=== PATIENT | female | born 1960 | race Caucasian/White ===

== ENCOUNTER 2018-05-26 07:35 | Outpatient (REF) | payer OTHER, SELFPAY ==
[2018-05-26 21:37] LABS: TSH 0.31 uIU/mL (0.358-3.74)
[2018-05-26 22:11] LABS: Abs Immature Grans 0.05 k/cumm (0.0-0.09); Absolute Basophil Count 0.05 k/cumm (0.0-0.2); Absolute Eosinophil Count 0.13 k/cumm (0.0-0.7); Absolute Lymphocyte Count 2.57 k/cumm (1.2-3.4); Absolute Monocyte Count 0.76 k/cumm (0.11-0.7); Absolute Neutrophil Count 7.03 k/cumm (1.2-6.7); Basophils % 0.5; Eosinophils % 1.2; HCT 45.6 % (36.0-46.0); HGB 14.8 g/dL (12.0-15.5); Immature Grans % 0.5; Lymphocytes % 24.3; Mean Corp. HGB Concentration 32.5 g/dL (32.0-36.0); Mean Corpuscular Hemoglobin 28.8 pg (27.0-33.0); Mean Corpuscular Volume 88.9 fL (80-95); Monocytes % 7.2; Neutrophils % 66.3; Platelet Count 377 x1000/uL (130-400); RBC 5.13 m/cumm (4.00-5.20); RBC Distribution Width 14.6 % (11.7-14.6); White Blood Cell Count 10.59 k/cumm (4.4-10.8)
[2018-05-26 22:34] LABS: Hemoglobin A1C 6.6 % (4.5-6.2)
== END 2018-05-26 07:55 ==
LOC: NCHCN 07:35
PROVIDERS: PCP Family Medicine; Visit Provider Registered Nurse
DX: E03.9 Hypothyroidism, unspecified (principal); D72.829 Elevated white blood cell count, unspecified; C54.1 Malignant neoplasm of endometrium; E11.9 Type 2 diabetes mellitus without complications
CPT/HCPCS: 83036; 84443; 85025

== ENCOUNTER 2018-09-07 18:47 | Outpatient (REF) | payer OTHER, SELFPAY ==
[2018-09-07 22:15] LABS: TSH (W/Ref FT4) 2.91 uIU/mL (0.358-3.74)
== END 2018-09-07 19:07 ==
LOC: NCHCN 18:47
PROVIDERS: PCP Family Medicine; Visit Provider Family Medicine
DX: E03.9 Hypothyroidism, unspecified (principal)
CPT/HCPCS: 84443

== ENCOUNTER 2019-03-28 16:00 | Outpatient (REF) | payer OTHER, SELFPAY ==
[2019-03-28 22:35] LABS: TSH 2.88 uIU/mL (0.36-3.74)
== END 2019-03-28 16:20 ==
LOC: NCHCN 16:00
PROVIDERS: PCP Family Medicine; Visit Provider Family Medicine
DX: R07.89 Other chest pain (principal); E03.9 Hypothyroidism, unspecified
CPT/HCPCS: 84443

== ENCOUNTER 2020-06-28 16:46 | Outpatient (REF) | payer OTHER, SELFPAY ==
[2020-06-28 21:04] LABS: COMMENT (LAB VIEW ONLY) 96.02 mg/dL; Microalb ug/mg Crea 5.1 ug/mg Cr
== END 2020-06-29 16:47 | disposition home or self-care (01) ==
LOC: NCHCN 16:46
PROVIDERS: PCP Family Medicine; Visit Provider Family Medicine
DX: E11.9 Type 2 diabetes mellitus without complications (principal)
CPT/HCPCS: 82043; 82570

== ENCOUNTER 2020-09-25 08:50 | Outpatient (REF) | payer SELFPAY ==
[2020-09-25 22:26] LABS: Calculated LDL 92 mg/dL (<100); Cholesterol 160 mg/dL (<200); HDL Cholesterol 41 mg/dL (40-60); Triglyceride 139 mg/dL (<150)
== END 2020-09-25 08:51 | disposition home or self-care (01) ==
LOC: LBN 08:50
PROVIDERS: PCP Family Medicine; Visit Provider Internal Medicine Cardiovascular Disease
DX: E78.00 Pure hypercholesterolemia, unspecified (principal)
CPT/HCPCS: 80061

== ENCOUNTER 2022-01-06 15:14 | Outpatient (REF) | payer SELFPAY ==
[2022-01-06 15:13] LABS: ALT 29 U/L (14-59); AST 23 U/L (15-37); Albumin 3.7 g/dL (3.4-5.0); Alkaline Phosphatase 88 U/L (46-116); Anion Gap 5.4 mmol/L (3-11); BUN 24 mg/dL (7-18); Bilirubin, Total 0.3 mg/dL (0.2-1.0); CO2 27.6 mmol/L (21.0-32.0); CREATININE 0.8 mg/dL (0.55-1.02); Calcium 9.8 mg/dL (8.5-10.1); Calculated LDL 134 mg/dL (<100); Chloride 103 mmol/L (98-107); Cholesterol 195 mg/dL (<200); Estimated GFR 84.82 (mL/min/1.73m2); Glucose 136 mg/dL (74-106); HDL Cholesterol 49 mg/dL (40-60); Potassium 4.6 mmol/L (3.5-5.1); Sodium 136 mmol/L (136-145); TSH 0.88 uIU/mL (0.36-3.74); Total Protein 7.8 g/dL (6.4-8.2); Triglyceride 63 mg/dL (<150)
== END 2022-01-06 15:15 | disposition home or self-care (01) ==
LOC: NCHCN 15:14
PROVIDERS: PCP Family Medicine; Visit Provider Family Medicine
DX: I10 Essential (primary) hypertension (principal); E03.9 Hypothyroidism, unspecified; E78.5 Hyperlipidemia, unspecified
CPT/HCPCS: 80053; 80061; 84443

== ENCOUNTER 2022-08-19 18:01 | Emergency (ER) | payer BC, SELFPAY ==
[2022-08-19 18:02] VITALS: BP 164/85; PULSE 101; RESP 18; TEMP 36.9; O2SAT 98
--- NOTE | 2022-08-19 19:30 | DI.RAD_ITS ---
Exam(s) XR KNEE LT 3V AP,LAT,TED EXAM: XR KNEE LT 3V AP,LAT,TED CLINICAL HISTORY: knee pain. TECHNIQUE: 2D digital imaging was performed. COMPARISON: No exams were available for comparison FINDINGS: 3 views No evidence of acute fracture. Small joint effusion noted. No joint space narrowing but there is ch ondrocalcinosis in the lateral compartment evident. Milder chondrocalcinosis in the medial compartme nt. IMPRESSION: No fractures. Chondrocalcinosis noted. Possible small joint effusion. DATA REPOSITORY: RADIATION DOSE DELIVERED:
[2022-08-19 19:54] LABS: Abs Immature Grans 0.06 10^3/uL (0.0-0.06); Absolute Lymphocyte Count 2.65 10^3/uL (1.2-3.4); Absolute Monocyte Count 0.75 10^3/uL (0.1-0.8); Basophils % 0.8; Eosinophils % 0.8; HCT 47.3 % (36.0-46.0); HGB 15.5 g/dL (11.2-15.7); Immature Grans % 0.5; Lymphocytes % 21.2; MCHC 32.8 % (32.0-36.0); MCV 86 fL (80-95); MPV 9.1 fL (8.0-11.0); Neutrophils % 70.7; Platelet Count 438 10^3/uL (130-400); RBC 5.53 10^6/uL (3.93-5.22); RDW 14.1 % (11.7-14.6); WBC 12.52 10^3/uL (4.4-10.8)
[2022-08-19 19:56] LABS: Absolute Neutrophil Count 8.85 10^3/uL (1.2-6.7)
[2022-08-19 20:08] LABS: ALT 26 U/L (14-59); AST 13 U/L (15-37); Albumin 3.7 g/dL (3.4-5.0); Alkaline Phosphatase 91 U/L (46-116); Anion Gap 10.9 mmol/L (3-11); BUN 24 mg/dL (7-18); Bilirubin, Total 0.4 mg/dL (0.2-1.0); CO2 28.1 mmol/L (21.0-32.0); CREATININE 0.9 mg/dL (0.55-1.02); Calcium 9.9 mg/dL (8.5-10.1); Chloride 101 mmol/L (98-107); Estimated GFR 73.19 (mL/min/1.73m2); Glucose 149 mg/dL (74-106); Potassium 3.8 mmol/L (3.5-5.1); Sodium 140 mmol/L (136-145); Total Protein 8.2 g/dL (6.4-8.2)
--- NOTE | 2022-08-19 20:22 | DI.VRAD_ITS ---
PROCEDURE INFORMATION: Exam: XR Left Knee Exam date and time: 08/19/2022 7:56 PM Age: 62 years old Clinical indication: Pain; Knee; Left TECHNIQUE: Imaging protocol: Radiologic exam of the left knee. Views: 3 views. COMPARISON: No relevant prior studies available. FINDINGS: Bones/joints: Normal. Soft tissues: Normal. IMPRESSION: No acute findings. Dictated and Authenticated by: Lara Mena MD. Ordering:SUNNY Wilkinson MD
[2022-08-19 20:23] LABS: D-Dimer 1008 ng/mlFEU (<500)
--- NOTE | 2022-08-19 20:35 | ED.GENADUL_ITS ---
Discharge Plan Disposition Patient Disposition: Home Discharge Details Clinical Impression: Pain in left leg, D-dimer, elevated Primary Care Provider: Katherine Martinez ED Provider: Minh Salmon Home Meds and New Rx's Prescriptions: No Action vitamin E 30 unit Capsule 30 unit PO DAILY levothyroxine 13 mcg Capsule See Rx Instructions .ROUTE .COMPLEX Rx Instructions: unknown dose Discharge Instructions Instructions: Apixaban (By mouth), Deep Vein Thrombosis (ED), Leg Pain (ED) Additional Instructions: It is very important that you call radiology department tomorrow morning to arrange an emergent ultrasound of your left leg to further evaluate for potential blood clot. If you have any new or significant worsening of symptoms return immediately to the emergency department for reassessment. You have been put on a short course of blood thinner pending these results and if you have any bleeding or major trauma return immediately to the emergency department for reassessment. You will need to follow-up in the emergency department for your results after your ultrasound is arranged. Referrals: Katherine Martinez [Primary Care Provider] - Discharge Data Discharge Date/Time-TO BE ENTERED AT DEPARTURE: 08/19/22 21:09 Medical Decision Making Patient presenting the emergency department for chief complaint of left leg pain and swelling for the last month. She initially thought it was just due to s tress of her being overweight and putting pressure on it when she stands but pain has continued to worsen. Approximately 1 week ago she did have some swelling only to her left leg that lasted 2 or 3 days. She denies any chest pain shortness of breath syncope or other symptoms. Physical exam is positive for some tenderness with palpation of the left inner thigh and popliteal space but exam is somewhat limited and difficult due to patient's body habitus. Differential diagnosis to include arthritis of the knee, DVT, muscular strain. We will check patient's labs including D-dimer and perform x-ray imaging of the knee. Patient denies any medication pending results. Review of labs shows a elevated D-dimer and otherwise nondiagnostic labs. Patient's x-ray is unremarkable per radiology interpretation. Discussed with patient risk versus benefit of anticoagulation pending outpatient ultrasound given that there is no availability at time of evening patient presented to the ED. After discussion of diagnosis and plan of care patient has no further needs, questions, or concerns and states clear understanding to return to the emergency department for any worsening symptoms. This documentation was generated using [employer] system, please disregard any oddities of phrase or misspellings. Imaging Data Radiologic Study: Imaging: X-Ray Radiologist's impression: Exam(s) PROCEDURE INFORMATION: Exam: XR Left Knee Exam date and time: 08/19/2022 7:56 PM Age: 62 years old Clinical indication: Pain; Knee; Left TECHNIQUE: Imaging protocol: Radiologic exam of the left knee. Views: 3 views. COMPARISON: No relevant prior studies available. FINDINGS: Bones/joints: Normal. Soft tissues: Normal. IMPRESSION: No acute findings. Lab Data Lab results reviewed: Yes I reviewed the patient's lab results. HPI General Mode of arrival: ambulatory . Date/Time Provider Initiated Documentation: 08/19/22 18:08 . Limitations to Documentation: no limitations . Information obtained by: patient and RN notes reviewed . History of Present Illness 62 year old F presents to the emergency department with the chief complaint of Left leg pain, described as moderate and severe, with intensity rated at 9. Quality is described as sharp, and is localized to the left and lower extremity. Patient started experiencing this week(s) No relieving factors improve symptom(s), No exacerbating factors reported . Patient notes no other symptoms.. Related Data Home Medications Medication Instructions Recorded Confirmed levothyroxine 13 mcg capsule See Rx Instructions .Route .COMPLEX 08/19/22 08/19/22 vitamin E 30 unit capsule 30 unit PO DAILY 08/19/22 08/19/22 Allergies Allergy/AdvReac Type Severity Reaction Status Date / Time No Known Allergies Allergy Unverified 08/19/22 18:10 General Stated Complaint: Vascular ADA: 3 Review of Systems Constitutional Constitutional: Denies chills, Denies fever(s) and Denies headache(s) ENT Ears, Nose, Mouth, and Throat: Denies headache(s) Cardiovascular Cardiovascular: Denies chest pain, Denies irregular heart rhythm, Reports claudication, Reports leg edema, Denies lightheadedness and Denies dyspnea Respiratory Respiratory: Denies dyspnea Gastrointestinal Gastrointestinal: Denies abdominal pain Musculoskeletal Musculoskeletal: Reports as per HPI Neurologic Neurologic: Denies headache(s) and Denies sensory deficit PFSH All Active Problems (Updated 08/19/22 @ 20:54 by Minh Salmon NP) Pain in left leg (Acute) D-dimer, elevated (Acute) Social History Smoking/Tobacco Use Status: Current every day Tobacco Type: cigarettes Smoking risk assessment performed?: Yes Alcohol Intake: never Do you feel safe at home: Yes Do you feel safe in your relationship?: Yes Exam Const General: cooperative, no acute distress and not ill appearing Nutritional Appearance: obese Orientation: alert, awake and oriented x3 HENMT Mouth: moist mucous membranes Resp Effort & Inspection: normal respiratory effort, able to speak in complete sentences and no respiratory distress Cardio Rate: regular rate Rhythm: regular rhythm Skin General skin exam: no rashes or lesions noted Neuro General: patient alert, patient awake, patient oriented x3, moves all extremities and no focal motor deficits Sensory Exam: no sensory deficits noted Extrem Left lower extremity: hip/thigh Details: tenderness Location: of the mid upper leg Location: medially; no swelling and no unusual warmth, knee Details: tenderness Location: of the popliteal fossa; no swelling and foot Details: vascular exam Details: dorsalis pedis pulse present and posterior tibial pulse present; no edema Course Vital Signs Vital signs: Vital Signs Temperature 36.9 C 08/19/22 18:02 Pulse 101 H 08/19/22 18:02 Respiratory Rate 18 08/19/22 18:02 Blood Pressure 164/85 H 08/19/22 18:02 Pulse Oximetry 98 08/19/22 18:02 Temperature 36.9 C 08/19/22 18:02 Temperature Source Temporal Artery Scan 08/19/22 18:02 Pulse 101 H 08/19/22 18:02 Respiratory Rate 18 08/19/22 18:02 Respiratory Effort Normal 08/19/22 18:08 Blood Pressure 164/85 H 08/19/22 18:02 Blood Pressure Position Sitting 08/19/22 18:02 Pulse Oximetry 98 08/19/22 18:02 Oxygen Delivery Method Room Air 08/19/22 18:02 Oxygen Flow Rate 0 08/19/22 18:02 Pain Level 2 08/19/22 18:02 Lab/Test Results Lab/Test Results: Laboratory Tests Range/Units 08/19/22 08/19/22 08/19/22 19:48 19:48 19:48 WBC (4.4-10.8) 10^3/uL 12.52 H RBC (3.93-5.22) 10^6/uL 5.53 H Hgb (11.2-15.7) g/dL 15.5 Hct (36.0-46.0) % 47.3 H MCV (80-95) fL 86 MCH (27.0-33.0) pg 28.0 MCHC (32.0-36.0) % 32.8 RDW (11.7-14.6) % 14.1 Plt Count (130-400) 10^3/uL 438 H MPV (8.0-11.0) fL 9.1 Immature Gran % 0.5 Neutrophils % 70.7 Lymphocytes % 21.2 Monocytes % 6.0 Eosinophils % 0.8 Basophils % 0.8 Nucleated RBC % (0.0-0.3) % 0.0 Absolute Neutrophils (1.2-6.7) 10^3/uL 8.85 H Absolute Lymphocytes (1.2-3.4) 10^3/uL 2.65 Absolute Monocytes (0.1-0.8) 10^3/uL 0.75 Absolute Eosinophils (0.0-0.7) 10^3/uL 0.10 Absolute Basophils (0.0-0.2) 10^3/uL 0.10 D-Dimer (<500) ng/mlFEU 1008 H Sodium (136-145) mmol/L 140 Potassium (3.5-5.1) mmol/L 3.8 Chloride (98-107) mmol/L 101 Carbon Dioxide (21.0-32.0) mmol/L 28.1 Anion Gap (3-11) mmol/L 10.9 BUN (7-18) mg/dL 24 H Creatinine (0.55-1.02) mg/dL 0.9 Est GFR (CKD-EPI 2020) (mL/min/1.73m2) 73.19 Glucose (74-106) mg/dL 149 H Calcium (8.5-10.1) mg/dL 9.9 Total Bilirubin (0.2-1.0) mg/dL 0.4 AST (15-37) U/L 13 L ALT (14-59) U/L 26 Alkaline Phosphatase (46-116) U/L 91 Total Protein (6.4-8.2) g/dL 8.2 Albumin (3.4-5.0) g/dL 3.7
[2022-08-19] MEDS: Apixaban 5 MG TAB 10 MG PO (20:55)
[2022-08-19] MEDS: Apixaban 5 MG TAB 20 MG PO (20:56)
[2022-08-19] MEDS: Acetaminophen 500 MG TAB 1000 MG PO (20:56)
[2022-08-19] MEDS: diphenhydrAMINE 25 MG CAP 50 MG PO (20:58)
[2022-08-19 21:08] VITALS: RESP 20
--- NOTE | 2022-08-20 09:57 | NUR.NOTE ---
Nursing Note: RAD needed a order for the patient to get an US
== END 2022-08-19 21:09 | disposition home or self-care (01) ==
PROVIDERS: Emergency Provider Nurse Practitioner Family; PCP Family Medicine
DX: M79.605 Pain in left leg (principal); R74.8 Abnormal levels of other serum enzymes
CPT/HCPCS: 36415; 73562; 80053; 99283; 85025; 85379

== ENCOUNTER 2022-12-14 13:00 | Outpatient (REF) | payer BC, SELFPAY ==
[2022-12-14 16:27] LABS: BUN 20 mg/dL (7-18); CREATININE 0.9 mg/dL (0.55-1.02); Estimated GFR 73.19 (mL/min/1.73m2)
== END 2022-12-14 13:01 | disposition home or self-care (01) ==
LOC: NCHCN 13:00
PROVIDERS: PCP Family Medicine; Visit Provider Family Medicine
DX: I10 Essential (primary) hypertension (principal)
CPT/HCPCS: 84520; 82565

== ENCOUNTER 2024-01-12 19:46 | Outpatient (REF) | payer SELFPAY ==
[2024-01-12 21:09] LABS: ALT 27 U/L (14-59); AST 27 U/L (15-37); Alkaline Phosphatase 95 U/L (46-116); Anion Gap 11.2 mmol/L (3-11); BUN 29 mg/dL (7-18); Bilirubin, Total 0.75 mg/dL (0.2-1.0); CO2 24.8 mmol/L (21.0-32.0); Calcium 10.2 mg/dL (8.5-10.1); Chloride 101 mmol/L (98-107); Estimated GFR 64.09 (mL/min/1.73m2); Glucose 93 mg/dL (74-106); Potassium 4.5 mmol/L (3.5-5.1); Sodium 137 mmol/L (136-145); TSH 0.15 uIU/mL (0.36-3.74); Total Protein 8.2 g/dL (6.4-8.2)
== END 2024-01-12 19:47 | disposition home or self-care (01) ==
LOC: NCHCN 19:46
PROVIDERS: PCP Family Medicine; Visit Provider Family Medicine
DX: E11.9 Type 2 diabetes mellitus without complications (principal); E03.9 Hypothyroidism, unspecified
CPT/HCPCS: 80053; 84443

== ENCOUNTER 2024-06-14 13:53 | Outpatient (REF) | payer BC, SELFPAY ==
[2024-06-14 21:38] LABS: TSH 3.83 uIU/mL (0.36-3.74)
== END 2024-06-14 13:54 | disposition home or self-care (01) ==
LOC: NCHCN 13:53
PROVIDERS: PCP Family Medicine; Visit Provider Family Medicine
DX: E03.9 Hypothyroidism, unspecified (principal)
CPT/HCPCS: 84443

== ENCOUNTER 2024-10-02 15:41 | Outpatient (REF) | payer BC, SELFPAY ==
[2024-10-02 22:12] LABS: COMMENT (LAB VIEW ONLY) 65.28 mg/dL; Microalb ug/mg Crea 13.3 ug/mg Cr
== END 2024-10-02 15:42 | disposition home or self-care (01) ==
LOC: NCHCN 15:41
PROVIDERS: PCP Family Medicine; Visit Provider Family Medicine
DX: E11.9 Type 2 diabetes mellitus without complications (principal)
CPT/HCPCS: 82043; 82570

== ENCOUNTER 2025-01-03 16:06 | Outpatient (REF) | payer BC, SELFPAY ==
[2025-01-03 22:01] LABS: Anion Gap 9.9 mmol/L (3-11); BUN 21 mg/dL (7-18); CO2 27.1 mmol/L (21.0-32.0); Calcium 10.3 mg/dL (8.5-10.1); Calculated LDL 207 mg/dL (<100); Chloride 102 mmol/L (98-107); Cholesterol 276 mg/dL (<200); Estimated GFR 83.26 (mL/min/1.73m2); Glucose 111 mg/dL (74-106); HDL Cholesterol 42 mg/dL (>or=50); Potassium 4.6 mmol/L (3.5-5.1); Sodium 139 mmol/L (136-145); TSH (W/Ref FT4) 0.65 uIU/mL (0.36-3.74); Triglyceride 139 mg/dL (<150)
== END 2025-01-03 16:07 | disposition home or self-care (01) ==
LOC: NCHCN 16:06
PROVIDERS: PCP Family Medicine; Visit Provider Family Medicine
DX: I10 Essential (primary) hypertension (principal); E78.5 Hyperlipidemia, unspecified; E03.9 Hypothyroidism, unspecified
CPT/HCPCS: 80048; 80061; 84443